=== PATIENT | male | born 1960 | race African-American/Black ===

== ENCOUNTER → 2017-05-28 | Outpatient (CLI) | payer OTHER ==
[~2017-05-28] MED LIST: AMLO2.5T PO; ASPI81TA11 PO; BUME2TAB PO; CEPH500C3 PO; COMMODE 3-IN-11 MIS; CPMMACHINE; CYCL-36 PO; DIOV80TA4 PO; GABA300 PO; HYDR25TA5 PO; IBUP800T23 PO; LACTCAP8 PO; LORTA5 PO; METO50TA PO; OXYC1TAB63 PO; SACC1CAP3 PO; SIMV20TA PO; WALKER WHEELS/F1 MIS; XARE10TA PO
--- NOTE | 2017-05-28 11:14 | EKG ---
Date Performed: 05/28/2017 Time Performed: 09:10:47 PTAGE: 56 years EKG: Sinus rhythm NORMAL ECG NO PREVIOUS TRACING DOCTOR: Tang Duarte Interpretating Date/Time 05/28/2017 11:13:56
== END ==
LOC: CPRE 08:37
PROVIDERS: ATTEND Orthopaedic Surgery Orthopaedic Surgery of the Spine
DX: Z01.810 Encounter for preprocedural cardiovascular examination (principal); M17.11 Unilateral primary osteoarthritis, right knee; Z79.01 Long term (current) use of anticoagulants
CPT/HCPCS: 93005

== ENCOUNTER 2017-06-08 06:24 | Inpatient (IN) | payer OTHER ==
[~2017-06-08] VITALS: Ht 182.9 cm; Wt 101.6 kg
[~2017-06-08 06:24] MED LIST changes: -BUME2TAB PO; -CEPH500C3 PO; -COMMODE 3-IN-11 MIS; -CPMMACHINE; -CYCL-36 PO; -DIOV80TA4 PO; -GABA300 PO; -IBUP800T23 PO; -LORTA5 PO; -METO50TA PO; -OXYC1TAB63 PO; -SACC1CAP3 PO; -WALKER WHEELS/F1 MIS; -XARE10TA PO
[2017-06-08] MEDS ORDERED: GENTAMICIN SULFATE 80 MG/2 ML VIAL ONE (07:11)
[2017-06-08] MEDS ORDERED: SODIUM CHLOR 0.9% 250 ML INJ 250 ML ONE (07:42)
[2017-06-08] MEDS ORDERED: VANCOMYCIN HCL 1000 MG VIAL ONE (07:43)
[2017-06-08] MEDS ORDERED: SODIUM CHLORID 0.9% 500 ML IV PRN (07:45)
[2017-06-08] MEDS ORDERED: METOPROLOL TARTRATE 25 MG TAB PO PRN (07:45)
[2017-06-08] MEDS ORDERED: LACTATED RINGER'S 1000 ML IV PRN (07:45)
[2017-06-08] MEDS ORDERED: CHLORHEXIDINE GLUCONATE 2 % 1 PACK (2 CLOTHS) TOPICAL PRN (07:45)
[2017-06-08] MEDS ORDERED: INSULIN HUMAN REGULAR 1,000 UNITS/10 ML VIAL SQ PRN (07:45)
[2017-06-08] MEDS ORDERED: POVIDONE IODINE 5% (ANTISEPSIS KIT) 4 APPLICATIONS EACH NARE PRN (07:45)
[2017-06-08] MEDS ORDERED: SODIUM CHLORIDE 0.9% IV SCH (08:00)
[2017-06-08] MEDS ORDERED: POVIDONE IODINE 7.5% SCRUB 118 ML BOTTLE TOPICAL SCH (08:00)
[2017-06-08] MEDS ORDERED: ceFAZolin 2 GM PREMIX 50 ML IV SCH (08:00)
[2017-06-08] MEDS ORDERED: VANCOMYCIN 1000 MG/NS 250 ML (for <70 kg) IV SCH ×2 (08:00)
[2017-06-08] MEDS ORDERED: TRANEXAMIC ACID IV SCH (08:00)
[2017-06-08] MEDS ORDERED: EXPAREL PERI-ARTICULAR INJECTION (TOTAL VOL. 60 ML) P-ARTICULR SCH ×2 (08:00)
[2017-06-08] MEDS ORDERED: ACETAMINOPHEN 1000 MG/100 ML 100 ML IV ONE (08:29)
[2017-06-08] MEDS ORDERED: MIDAZOLAM HCL 2 MG/2 ML VIAL ONE (08:29)
[2017-06-08] MEDS ORDERED: FAMOTIDINE 20 MG/2 ML VIAL ONE (08:30)
[2017-06-08] MEDS ORDERED: MORPHINE SULFATE 8 MG/ML INJ IM PRN (09:30)
[2017-06-08] MEDS ORDERED: SODIUM CHLORIDE 0.9% FLUSH 10 ML FLUSH IV FLUSH PRN (09:30)
[2017-06-08] MEDS ORDERED: NALOXONE HCL 0.4 MG/ML AMP IV PRN (09:30)
[2017-06-08] MEDS ORDERED: oxyCODONE/ACETAMINOPHEN 5 MG/325 MG TAB PO PRN (09:30)
[2017-06-08] MEDS ORDERED: MISCELLANEOUS NURSING INFORMATION XX PRN (09:30)
[2017-06-08] MEDS ORDERED: TEMAZEPAM 15 MG CAP PO PRN (09:30)
[2017-06-08] MEDS ORDERED: XARE10TA PO (09:36)
[2017-06-08] MEDS ORDERED: OXYC1TAB63 PO (09:36)
[2017-06-08] MEDS ORDERED: PILL SPLITTER OTHER PRN (10:00)
--- NOTE | 2017-06-08 11:21 | PD.OP ---
cc: Fredrick Stuart MD Operative Report Date of Surgery: Jun 08, 2017 Preoperative Diagnosis: Osteoarthritis left knee. Valgus deformity, left knee Postoperative Diagnosis: Same Procedure: Left total knee replacement arthroplasty Anesthesia: Gen. with regional block Surgeon: Fredrick Stuart Administration Professional(s): GAVIN Higgins Operation and Findings: EBL: 50 cc INDICATION: This patient presents with long-standing arthritis of the knee. Attachment record documents conservative measures. The patient now presents for surgical treatment. NOTE: Nadege Higgins PA-C was present for the entire surgical procedure as my assistant press operator. In my medical opinion her skill and care was necessary for proper management of this patient. TOURNIQUET TIME: 58 minutes COMPANY: [employer] FEMUR: Size 4, left, cruciate retaining TIBIA: Size 4, fixed bearing PATELLA: 35 mm POLYETHYLENE INSERT: 11 mm PROCEDURE: This patient was brought the operating room and anesthetized in the supine position. The patient was positioned supine on the table. The tourniquet was placed about the thigh, and the leg was scrubbed with alcohol followed by Hibiclens followed by ChloraPrep and draped sterilely. A timeout was done, and antibiotics were given. After exsanguination the tourniquet was inflated to 300 mmHg. An anterior incision was made and a median parapatellar arthrotomy was performed. The patella was released laterally and subluxed allowing freehand cut of the patella which was then sized. A metal cap was placed over the exposed patellar surface for protection. A captain airline pilot hole was placed in the distal femur allowing a 5 valgus cut removing 12 mm from the distal femur. Anterior posterior and chamfer cuts were made. The posterior stabilize osteotomy was made. The attention was directed to the tibia. Retractors were positioned. The external alignment guide was used allowing the lateral tibia to be used as referencing guide and cut utilizing an oscillating saw taking care to avoid any injury to the surrounding soft tissues. This was sized properly. Trial reduction showed that the insert fit nicely. The patient had range of motion extension 0 flexion 120. A medial release was not necessary. The bony surfaces prepared. On the back table 2 packets of methylmethacrylate were mixed. The components were cemented. Excess cement was removed. The tourniquet let down and hemostasis was controlled. The final plastic insert was inserted. Range of motion was the same as previously noted. A drain was brought through a separate stab incision. The arthrotomy was repaired with interrupted #1 Vicryl suture, subcutaneous tissue 2-0 Vicryl suture and skin with metallic mariaa A sterile dressing was applied. Sponge counts, needle counts and instrument counts were all correct. The patient tolerated procedure well and was taken to recovery in satisfactory condition. FINDINGS: There was severe osteoarthritis especially of the lateral compartment. There was complete loss of articular cartilage and bony erosion posterior especially in flexion. The posterior lateral region of the femur was eroded. The final solution was excellent. Fredrick Stuart MD Jun 08, 2017 11:21
[2017-06-08] MEDS ORDERED: Post-op Orders (for Pharmacy) MISC XX ONE (11:47)
[2017-06-08] MEDS ORDERED: BUPIVACAINE LIPOSOME PF 1.3% 20 ML VIAL ONE (11:51)
[2017-06-08] MEDS ORDERED: ePHEDrine/NS 25 MG/5 ML SYR IV ONE (12:00)
[2017-06-08] MEDS ORDERED: DO NOT ADM ANY ANTICOAGULANT DRUGS PRN (12:00)
[2017-06-08] MEDS ORDERED: NEOSTIGMINE 3 MG/3 ML SYR IV ONE (12:00)
[2017-06-08] MEDS ORDERED: ROCURONIUM INJ 50 MG/5 ML SYRINGE IV PUSH ONE (12:00)
[2017-06-08] MEDS ORDERED: METOPROLOL TARTRATE 5 MG/5 ML VIAL IV PUSH ONE (12:00)
[2017-06-08] MEDS ORDERED: ONDANSETRON HCL 4 MG/2 ML VIAL IV PUSH ONE (12:00)
[2017-06-08] MEDS ORDERED: LIDOCAINE HCL 1% PF 5 ML AMPULE OTHER ONE (12:00)
[2017-06-08] MEDS ORDERED: PHENYLEPH/NS 1000 MCG/10 ML SYR IV ONE (12:00)
[2017-06-08] MEDS ORDERED: PROPOFOL 200 MG/20 ML AMP IV ONE (12:00)
[2017-06-08] MEDS ORDERED: GLYCOPYRROLATE 1 MG/5 ML SYRINGE IV PUSH ONE (12:00)
[2017-06-08] MEDS ORDERED: MISCELLANEOUS PHARMACY INFORMATION XX ONE (12:00)
[2017-06-08] MEDS ORDERED: *morphine SULFATE 8 MG/ML PERIprocedure ONLY ONE (12:02)
[2017-06-08] MEDS: LACTATED RINGER'S 1000 ML INJ 1,000 ML IV SCH (12:15)
[2017-06-08] MEDS: MORPHINE SULFATE 30 MG/30 ML PCA IV SCH (12:54)
--- NOTE | 2017-06-08 12:56 | RADRPT ---
EXAM DATE/TIME: 06/08/2017 11:59 [facility] COMPARISON: No previous studies available for comparison. INDICATIONS : Post op total left knee replacement. MEDICAL HISTORY : Congestive heart failure. Hypercholesterolemia. Hypertension. Arthritis. SURGICAL HISTORY : Fusion, cervical. Cardiac cath. ENCOUNTER: Initial ACUITY: 1 day PAIN SCORE: 8/10 LOCATION: Left knee FINDINGS: Two view examination of the left knee demonstrates no evidence of fracture or dislocation. Left knee arthroplasty. No hardware loosening. Postsurgical changes with drain. CONCLUSION: Left knee arthroplasty. Phil Delaney MD on June 08, 2017 at 12:52 Board Certified Radiologist. This report was verified electronically.
[2017-06-08] MEDS: PCA - TOTAL MG MORPHINE DELIVERED PER SHIFT SCH ×2 (14:00→21:37)
[2017-06-08 16:00] VITALS: BP 152/70; PULSE 67; RESP 16; TEMP 97; O2SAT 100
[2017-06-08 17:00] VITALS: O2SAT 95
[2017-06-08] MEDS: oxyCODONE/ACETAMINOPHEN 5 MG/325 MG TAB PO PRN (17:42)
[2017-06-08 19:52] VITALS: BP 149/99; PULSE 89; RESP 18; TEMP 98.7; O2SAT 94
[2017-06-08] MEDS: SODIUM CHLORIDE 0.9% FLUSH 10 ML FLUSH IV FLUSH SCH (21:00)
[2017-06-08] MEDS: SENNOSIDES 8.6 MG TAB PO SCH (21:34)
[2017-06-08] MEDS: MAGNESIUM HYDROXIDE SUSP 30 ML CUP PO SCH (21:34)
[2017-06-08] MEDS ORDERED: WALKER WHEELS/F1 MIS (22:19)
[2017-06-08] MEDS ORDERED: COMMODE 3-IN-11 MIS (22:19)
[2017-06-08] MEDS ORDERED: CPMMACHINE (22:20)
--- NOTE | 2017-06-08 22:21 | HHI.DCPOC ---
Discharge Care Plan Diagnosis: (1) Osteoarthritis of left knee Your Health Problems Are: Incision/Drains Swelling Goals to Promote Your Health * To prevent worsening of your condition and complications * To maintain your health at the optimal level Directions to Meet Your Goals Take your medications as prescribed Follow your dietary instruction Follow activity as directed Keep your appointments as scheduled Take your immunizations and boosters as scheduled If your symptoms worsen call your PCP, if no PCP go to Urgent Care Center or Emergency Room Smoking is Dangerous to Your Health. Avoid second hand smoke Call the 24-hour hour crisis hotline for domestic abuse at Maddison Cabrera Jun 08, 2017 22:21
--- NOTE | 2017-06-08 22:24 | HHI.DS ---
Discharge Summary Admission Date Jun 08, 2017 at 06:24 Discharge Date: Jun 11, 2017 Admitting Diagnosis see below Diagnosis: (1) Osteoarthritis of left knee Diagnosis: Principal ICD Codes: M17.12 - Unilateral primary osteoarthritis, left knee Procedures Left total knee arthroplasty Brief History This is a 56 year old male patient with a multi-year history of left knee pain. He began using over the counter medications some time ago but when his pain continued to increase he sought out medical treatment. Imaging studies showed moderate arthritis of the knee. He began using a knee brace and continued this for several years. He sought out further care when his function declined. He was given an intra-articular knee injection and placed on diclofenac, neither of which provided much relief. It was then recommended that he consider left total knee arthroplasty. He agreed and presents for the above surgery. Hospital Course Surgical treatment was performed on the day of admission without complication. He recovered well in PACU and was transferred to the orthopedic floor. Pain was controlled with IV and oral medications. DVT prophylaxis was initiated postop day 1 with Xarelto 10 mg. The patient was compliant with physical therapy , his brace and his CPM, including all activity restrictions. After 3 days he was found to be stable and discharged to a fdc facility. He was educated to pursue a high-fiber diet, continue his xarelto, his oxycodone as needed, and to continue a physical therapy program. Pt Condition on Discharge: Stable Discharge Disposition: Discharge to SNF Discharge Instructions Diet Instructions: As Tolerated, No Restrictions, High Fiber Diet Activities You Can Perform: Weight Bearing as Dustin Activities to Avoid: Strenuous Activity New Medications: Commode 3-in-1 (Commode 3-in-1) 1 Mis Mis EA .ROUTE DIRECTED, #1 0 Refills CPM-Continuous Passive Motion Machine (CPM-Continuous Passive Motion Machine) 1 Ea Device EA .ROUTE DIRECTED, #1 0 Refills Walker with Front Wheels (Walker with Front Wheels) 1 Mis Mis EA .ROUTE DIRECTED, #1 0 Refills Oxycodone-Acetaminophen (Oxycodone-Acetaminophen) 5-325 mg Tab 1 TAB PO Q4H PRN for pain, #50 TAB Rivaroxaban (Xarelto) 10 Mg Tab 10 MG PO Q24H for Prevent Blood Clot, #15 TAB Continued Medications: Amlodipine (Amlodipine) 2.5 Mg Tab 2.5 MG PO DAILY for Blood Pressure Management, #30 TAB [address] (Aspirin EC) 81 Mg Tabdr 81 MG PO DAILY, TAB 0 Refills Hydrochlorothiazide (Hydrochlorothiazide) 25 Mg Tab 25 MG PO DAILY, #30 TAB 0 Refills Lactobacillus Acidophilus (Probiotic) 10 Billion Cell Cap 1 CAP PO DAILY for Nutritional Supplement, #90 CAP 0 Refills Simvastatin (Simvastatin) 20 Mg Tab 20 MG PO DAILY for Cholesterol Management, #30 TAB 0 Refills Maddison Cabrera Jun 08, 2017 22:24
[2017-06-08 23:15] VITALS: BP 119/82; PULSE 90; RESP 18; TEMP 98.9; O2SAT 93
[2017-06-09 03:52] VITALS: BP 119/67; PULSE 90; RESP 18; TEMP 97.1; O2SAT 92
[2017-06-09] MEDS: LACTATED RINGER'S 1000 ML INJ 1,000 ML IV SCH ×2 (04:13→13:00)
[2017-06-09] MEDS: PCA - TOTAL MG MORPHINE DELIVERED PER SHIFT SCH (05:48)
[2017-06-09] MEDS: MORPHINE SULFATE 30 MG/30 ML PCA IV SCH (06:09)
[2017-06-09 06:55] LABS: HEMATOCRIT 35.2 % (39.0-51.0); REVIEW FLAG FINAL
[2017-06-09 08:00] VITALS: BP 123/78; PULSE 91; RESP 18; TEMP 100.7; O2SAT 95
[2017-06-09] MEDS: PRAVASTATIN SOD 40 MG TAB PO SCH (08:16)
[2017-06-09] MEDS: amLODIPine BESYLATE 5 MG TAB PO SCH (08:16)
[2017-06-09] MEDS: MAGNESIUM HYDROXIDE SUSP 30 ML CUP PO SCH ×2 (08:16→20:22)
[2017-06-09] MEDS: HYDROCHLOROTHIAZIDE 25 MG TAB PO SCH (08:16)
[2017-06-09] MEDS: SODIUM CHLORIDE 0.9% FLUSH 10 ML FLUSH IV FLUSH SCH ×2 (08:17→20:22)
[2017-06-09] MEDS: oxyCODONE/ACETAMINOPHEN 5 MG/325 MG TAB PO PRN ×3 (08:30→20:23)
[2017-06-09 09:27] VITALS: O2SAT 98
[2017-06-09] MEDS: RIVAROXABAN 10 MG TAB PO SCH (11:19)
[2017-06-09 12:00] VITALS: BP 123/76; PULSE 108; RESP 18; TEMP 96; O2SAT 94
--- NOTE | 2017-06-09 12:36 | PD.ORT.PN ---
Subjective Subjective Remarks Moderate left knee pain. Substantial throbbing with movement / PT. No new leg pain. Sore throat but no other complaints. No new CP , SOB or abd pain. Would very much prefer [facility] after discharge. Objective Vitals Vital Signs Date Time Temp Pulse Resp B/P (MAP) Pulse Ox O2 Delivery O2 Flow Rate FiO2 06/09/17 09:27 98 06/09/17 08:00 100.7 91 18 123/78 (93) 95 06/09/17 06:09 18 06/09/17 05:48 16 06/09/17 03:52 97.1 90 18 119/67 (84) 92 06/08/17 23:15 98.9 90 18 119/82 (94) 93 06/08/17 21:37 18 06/08/17 19:52 98.7 89 18 149/99 (116) 94 06/08/17 17:00 95 21 06/08/17 16:00 97.0 67 16 152/70 (97) 100 06/08/17 16:00 65 18 161/83 (109) 94 Room Air 06/08/17 15:00 57 18 142/81 (101) 93 Room Air 06/08/17 14:00 61 18 128/83 (98) 93 Room Air 06/08/17 13:00 58 18 126/79 (95) 97 Room Air 06/08/17 12:54 14 06/08/17 12:45 59 18 141/79 (99) 98 Nasal Cannula 2 I/O 06/08/17 06/08/17 06/08/17 06/09/17 06/09/17 06/09/17 07:00 15:00 23:00 07:00 15:00 23:00 Intake Total 1000 ml 1583 ml 1211 ml Output Total 150 ml 550 ml 620 ml Balance 850 ml 1033 ml 591 ml Intake Oral 480 ml 480 ml IV Total 1103 ml 731 ml Other 1000 ml Output Urine Total 100 ml 550 ml 450 ml Drainage Total 170 ml Estimated Blood Loss 50 ml # Voids 0 # Bowel Movements 0 0 Result Diagram: 06/09/17 0545 Procedures Left total knee arthroplasty Objective Remarks Sitting up in chair, NAD VSS Left LE Dressing c/d/i, very little drainage, drain in place lateral knee, some swelling and warmth Thigh and calf both supple, neg homans +motor AT, +sens, +nvi Assessment & Plan Ortho Post Op Day #: 1 Problem List: (1) Osteoarthritis of left knee ICD Codes: M17.12 - Unilateral primary osteoarthritis, left knee Qualifiers: Qualified Codes: M17.12 - Unilateral primary osteoarthritis, left knee Assessment and Plan pod#1 s/p L TKA D/C [facility] - change to po pain meds. On oxycodone 5mg D/C left knee drain - ok to take down JAY and change drain dressing only. Do not change incision dressing. Hold dressing changes unless saturated. PT - WBAT LLE. TKA protocol. CPM bid. Xarelto 10mg qd. D/C planning, SNF wednesday. He has no family support at home. 3008 form signed. DME written. Maddison Cabrera Jun 09, 2017 12:36
[2017-06-09 13:01] LABS: MRSA PCR NEGATIVE (NEGATIVE); STAPH AUREUS PCR NEGATIVE (NEGATIVE)
--- NOTE | 2017-06-09 13:51 | MH ---
cc: JAMES CASTELLON DATE OF ADMISSION: 06/08/2017 ADMISSION DIAGNOSIS Left knee osteoarthritis. HISTORY This patient is a 56-year-old male with significant left knee pain. Investigative studies show evidence of significant deformity of the left knee and pain with range of motion. Neurologic and vascular emanation are within normal limits. The patient now presents for surgical treatment. PAST MEDICAL HISTORY, SOCIAL HISTORY, FAMILY HISTORY, REVIEW OF SYSTEMS See attached notes. PHYSICAL EXAMINATION GENERAL: Average build male in moderate distress with the left knee. HEENT: Normocephalic, atraumatic. Pupils equal, round, reactive to light and accommodation. Extraocular motions intact. NECK: Supple. CHEST: Clear. HEART: Regular rate and rhythm. ABDOMEN: Soft, nontender with normoactive bowel sounds. MUSCULOSKELETAL EXAMINATION: Left knee - Pain with range of motion especially with flexion and extension. Moderate deformity. Neurologic and vascular examination is within normal limits. IMPRESSION Left knee osteoarthritis. PLAN Left total knee replacement arthroplasty. CONSENT There are risks with surgery including infection, bleeding, loss of motion, continued pain, need for further surgery, neurologic and vascular injury. The patient understands these issues and wishes to press on with surgery as outlined above. MD LAWSON Giraldo/SONA /10:29 PM /1:43 PM
[2017-06-09 16:00] VITALS: BP 108/76; PULSE 105; RESP 16; TEMP 100.6; O2SAT 93
[2017-06-09 19:00] VITALS: BP 136/92; PULSE 93; RESP 17; TEMP 98.2; O2SAT 93
[2017-06-09] MEDS: SENNOSIDES 8.6 MG TAB PO SCH (20:22)
[2017-06-10] VITALS: BP 107/79; PULSE 90; RESP 18; TEMP 97.3; O2SAT 94
[2017-06-10] MEDS: oxyCODONE/ACETAMINOPHEN 5 MG/325 MG TAB PO PRN ×6 (00:20→20:27)
[2017-06-10] MEDS: LACTATED RINGER'S 1000 ML INJ 1,000 ML IV SCH ×2 (01:30→14:00)
[2017-06-10 08:00] VITALS: BP 105/71; PULSE 109; RESP 16; TEMP 98.7; O2SAT 92
--- NOTE | 2017-06-10 08:19 | PD.ORT.PN ---
Subjective Subjective Remarks He continues to have moderate left knee pain and difficulty with ROM. He denies any new symptoms. No new leg pain. Urinating well. Sore throat is better. His appetite is improving slowly. Still prefers to go to [facility] after discharge. Objective Vitals Vital Signs Date Time Temp Pulse Resp B/P (MAP) Pulse Ox O2 Delivery O2 Flow Rate FiO2 06/10/17 00:00 97.3 90 18 107/79 (88) 94 06/09/17 19:00 98.2 93 17 136/92 (107) 93 06/09/17 16:00 100.6 105 16 108/76 (87) 93 06/09/17 12:00 96.0 108 18 123/76 (92) 94 06/09/17 09:27 98 I/O 06/09/17 06/09/17 06/09/17 06/10/17 06/10/17 06/10/17 07:00 15:00 23:00 07:00 15:00 23:00 Intake Total 1211 ml 600 ml 1131 ml 392 ml Output Total 620 ml 800 ml 890 ml 300 ml Balance 591 ml -200 ml 241 ml 92 ml Intake Oral 480 ml 600 ml 480 ml 240 ml IV Total 731 ml 651 ml 152 ml Output Urine Total 450 ml 800 ml 800 ml 300 ml Drainage Total 170 ml 90 ml # Bowel Movements 0 0 0 0 Result Diagram: 06/09/17 0545 Procedures Left total knee arthroplasty Objective Remarks Sitting up in bed, NAD VSS Left LE Dressing c/d/i, mild drainage but not new since yesterday, drain removed and site clean, some swelling and warmth, no erythema Thigh and calf both supple, neg homans +motor AT, +sens, +nvi Assessment & Plan Ortho Post Op Day #: 2 Problem List: (1) Osteoarthritis of left knee ICD Codes: M17.12 - Unilateral primary osteoarthritis, left knee Qualifiers: Qualified Codes: M17.12 - Unilateral primary osteoarthritis, left knee Assessment and Plan pod#2 s/p L TKA Moderate pain but no new complaints. PO pain meds. On oxycodone 5mg Drain site clean. Ok to change drain site if drainage but do not change incision dressing. Hold incision dressing changes unless saturated. PT - WBAT LLE. TKA protocol. CPM bid. Xarelto 10mg qd. D/C planning, SNF wednesday. He has no family support at home. 3008 form signed. DME written. Maddison Cabrera Jun 10, 2017 08:19
[2017-06-10] MEDS: PRAVASTATIN SOD 40 MG TAB PO SCH (08:28)
[2017-06-10] MEDS: amLODIPine BESYLATE 5 MG TAB PO SCH ×2 (08:29→08:32)
[2017-06-10] MEDS: SODIUM CHLORIDE 0.9% FLUSH 10 ML FLUSH IV FLUSH SCH ×2 (08:29→20:27)
[2017-06-10] MEDS: HYDROCHLOROTHIAZIDE 25 MG TAB PO SCH (08:29)
[2017-06-10] MEDS: MAGNESIUM HYDROXIDE SUSP 30 ML CUP PO SCH ×2 (08:29→20:26)
[2017-06-10 12:00] VITALS: BP 101/71; PULSE 115; RESP 16; TEMP 96.5; O2SAT 92
[2017-06-10] MEDS: RIVAROXABAN 10 MG TAB PO SCH (12:24)
[2017-06-10 16:00] VITALS: BP 145/82; PULSE 100; RESP 16; TEMP 100.2; O2SAT 92
[2017-06-10 19:00] VITALS: BP 100/70; PULSE 118; RESP 18; TEMP 100.5; O2SAT 92
[2017-06-10] MEDS: SENNOSIDES 8.6 MG TAB PO SCH (20:26)
[2017-06-11] VITALS: BP 97/72; PULSE 109; RESP 17; TEMP 99.4; O2SAT 92
[2017-06-11] MEDS: oxyCODONE/ACETAMINOPHEN 5 MG/325 MG TAB PO PRN ×4 (00:11→13:23)
[2017-06-11] MEDS: LACTATED RINGER'S 1000 ML INJ 1,000 ML IV SCH (02:30)
[2017-06-11 08:00] VITALS: BP 133/73; PULSE 108; RESP 18; TEMP 98.1; O2SAT 91
--- NOTE | 2017-06-11 08:27 | PD.ORT.PN ---
Subjective Subjective Remarks He is doing well. he had a better night last night. He still has aching and pain left knee. No new complaints. Ready for d/c to SNF today. Questions about progress with PT next few weeks. Objective Vitals Vital Signs Date Time Temp Pulse Resp B/P (MAP) Pulse Ox O2 Delivery O2 Flow Rate FiO2 06/11/17 00:00 99.4 109 17 97/72 (80) 92 06/10/17 19:00 100.5 118 18 100/70 (80) 92 06/10/17 16:00 100.2 100 16 145/82 (103) 92 06/10/17 12:00 96.5 115 16 101/71 (81) 92 06/10/17 12:00 96.5 115 16 101/71 (81) 92 I/O 06/10/17 06/10/17 06/10/17 06/11/17 06/11/17 06/11/17 07:00 15:00 23:00 07:00 15:00 23:00 Intake Total 392 ml 600 ml 480 ml 450 ml Output Total 300 ml 1100 ml 850 ml 650 ml Balance 92 ml -500 ml -370 ml -200 ml Intake Oral 240 ml 600 ml 480 ml 450 ml IV Total 152 ml Output Urine Total 300 ml 1100 ml 850 ml 650 ml # Bowel Movements 0 0 0 0 Result Diagram: 06/09/17 0545 Procedures Left total knee arthroplasty Objective Remarks Laying in bed, NAD VSS Left LE Dressing c/d/i, no new drainage, drain site clean/covered, some swelling and warmth, no erythema Thigh and calf both supple, neg homans +motor AT, +sens, +nvi Assessment & Plan Ortho Post Op Day #: 3 Problem List: (1) Osteoarthritis of left knee ICD Codes: M17.12 - Unilateral primary osteoarthritis, left knee Qualifiers: Qualified Codes: M17.12 - Unilateral primary osteoarthritis, left knee Assessment and Plan pod#3 s/p L TKA ortho stable. Ok for d/c to snf today. PO pain meds. On oxycodone 5mg Drain site clean. Ok to change drain site if drainage but do not change incision dressing. Hold incision dressing changes unless saturated. PT - WBAT LLE. TKA protocol. CPM bid. Xarelto 10mg qd. F/U in 2 weeks as scheduled. 3008 form signed. DME written. Maddison Cabrera Jun 11, 2017 08:27
[2017-06-11] MEDS: PRAVASTATIN SOD 40 MG TAB PO SCH (09:00)
[2017-06-11] MEDS: amLODIPine BESYLATE 5 MG TAB PO SCH (09:01)
[2017-06-11] MEDS: HYDROCHLOROTHIAZIDE 25 MG TAB PO SCH (09:01)
[2017-06-11] MEDS: MAGNESIUM HYDROXIDE SUSP 30 ML CUP PO SCH (09:01)
[2017-06-11] MEDS: SODIUM CHLORIDE 0.9% FLUSH 10 ML FLUSH IV FLUSH SCH (09:04)
[2017-06-11] MEDS: RIVAROXABAN 10 MG TAB PO SCH (10:48)
[2017-06-11 12:00] VITALS: BP 105/67; PULSE 111; RESP 18; TEMP 95.6; O2SAT 91
== END 2017-06-11 16:20 | DRG 470 ==
LOC: HSDI 06:24 → N06A 16:18
PROVIDERS: ADMIT Orthopaedic Surgery Orthopaedic Surgery of the Spine; ATTEND Orthopaedic Surgery Orthopaedic Surgery of the Spine
PROC: 0SRD0J9 Replacement of Left Knee Joint with Synthetic Substitute, Cemented, Open Approach (ICD-10-PCS; principal; 2017-06-08 08:55)
DX: M17.12 Unilateral primary osteoarthritis, left knee (principal); G62.9 Polyneuropathy, unspecified; I10 Essential (primary) hypertension; M21.062 Valgus deformity, not elsewhere classified, left knee; E78.5 Hyperlipidemia, unspecified; F17.210 Nicotine dependence, cigarettes, uncomplicated; M54.9 Dorsalgia, unspecified; K21.9 Gastro-esophageal reflux disease without esophagitis
CPT/HCPCS: 73560; 85014; 85018; 86850; 86900; 86901; 86920; 87081; 87640; 87641; 94150; C1776; C9290; J0131; J0690; J1580; J2250; J2270; J2370; J2405; J2710; J3010; J3370; J7050; J7120; L1830